=== PATIENT | male | born 1985 | race Caucasian/White ===

== ENCOUNTER 2020-09-07 00:01 | Emergency (ER) | payer MEDICARE, OTHER | END 2020-09-07 01:27 | disposition home or self-care (01) | LOC: ER1 00:01 | DX: R05 Cough (principal); F17.200 Nicotine dependence, unspecified, uncomplicated; Z20.822 Contact with and (suspected) exposure to COVID-19; Z88.8 Allergy status to other drugs, medicaments and biological substances | CPT/HCPCS: 0240U; 99283 ==

== ENCOUNTER 2021-12-27 07:35 | Emergency (ER) | payer MEDICARE, OTHER ==
[2021-12-27] MEDS ORDERED: IBUPROFEN600 MG PO (09:13)
== END 2021-12-27 09:22 | disposition home or self-care (01) ==
LOC: ER1 07:35
DX: M25.532 Pain in left wrist (principal); M79.632 Pain in left forearm; F17.200 Nicotine dependence, unspecified, uncomplicated; Z86.73 Personal history of transient ischemic attack (TIA), and cerebral infarction without residual deficits; Z85.6 Personal history of leukemia; Z96.653 Presence of artificial knee joint, bilateral
CPT/HCPCS: 73090; 73110; 99283